=== PATIENT | female | born 1975 | race Caucasian/White ===

== ENCOUNTER 2016-05-13 01:45 | Emergency (ER) | payer OTHER ==
[~2016-05-13] VITALS: Ht 160 cm; Wt 75.8 kg
--- OUTSIDE RECORDS SUMMARY | 2016-05-13 01:50 | XMS REPORT | CCD ---
Author Author RACH SPAULDING Organization Unknown Address [address], [place] [id number] Phone 0 Care Team Providers Care White Lead Filterer Name Role Phone RANGEL DEVRIES Attending Physician [phone] Vital Signs Unknown or Not Available. Allergies Unknown or Not Available. Procedures Unknown or Not Available. History of Immunizations Unknown or Not Available. Problems Unknown or Not Available. Results GLUCOSE - Collect Date/Time: 05/14/2015 08:10 Test Name Code Test Result Test Units Test Ref Range GLUCOSE 104 mg/dL L=70 H=110 LIPID PANEL - Collect Date/Time: 05/14/2015 08:10 Test Name Code Test Result Test Units Test Ref Range CHOLESTEROL 185 mg/ dL L=0 H=200 TRIGLYCERIDES 31 mg/ dL L=30 H=150 HDL 49 mg/dL L=50 H=60 LDL, CALC 130 mg/dL L=0 H=100 VLDL 6 mg/dL L=0 H=40 CHOL/HDL RISK 3.8 RATIO L=0.0 H=4.4 PT FASTING: YES N/A TSH - Collect Date/Time: 05/14/2015 08:10 Test Name Code Test Result Test Units Test Ref Range TSH 2.60 uIU/mL L=0.36 H=3.74 Active Medications Unknown or Not Available. Medications Administered During Visit Unknown or Not Available. Encounters Encounter Diagnosis Diagnosis Code Start Date Encounter for screening for lipoid disorders [id number] 05/14/2015 Social History Smoking Status Code Start Date End Date Unknown if ever smoked [id number] Patient Decision Aids Unknown or Not Available. Discharge Instructions You were admitted to [facility] on 05/14/2015 08:07 with a principal diagnosis of Encounter for screening for lipoid disorders You had the following tests done: GLUCOSE LIPID PANEL TSH You were discharged from [facility] on 05/14/2015 08:07 Should you have any questions prior to discharge, please contact a member of your healthcare team. If you have left the hospital and have any questions, please contact your primary care physician. Chief Complaint and Reason For Visit Chief Complaint Date of Onset LAB Function Status Unknown or Not Available. Plan of Care Unknown or Not Available. Referral/Transition of Care Unknown or Not Available.
--- OUTSIDE RECORDS SUMMARY | 2016-05-13 01:50 | XMS REPORT | Continuity of Care Document ---
Demographics Preferred Language Unknown Marital Status Unknown Congregational Affiliation Unknown Race Unknown Ethnic Group Unknown Author Author [facility] Organization [facility] Address Unknown Phone Unavailable Allergies Medications Problems Procedures Results Encounters ACCT No. Visit Date/Time Discharge Status Pt. Type Provider Facility Loc./Unit Complaint [id number] 06/16/2015 11:00:00 [facility] Unknown
[2016-05-13 01:55] VITALS: TEMP 97.9; Ht 160 cm; Wt 75.8 kg
--- NOTE | 2016-05-13 02:10 | NUR ---
PROVIDER DR MCCOY IN ROOM AT THIS TIME.
[2016-05-13] MEDS ORDERED: ESCI10TA PO (02:33)
--- NOTE | 2016-05-13 02:40 | NUR ---
PROVIDER DR MCCOY IN ROOM AT THIS TIME.
--- NOTE | 2016-05-13 02:55 | ERPDOC ---
Departure Disposition Decision Date: May 13, 2016 Disposition Decision Time: 02:51 Disposition: 01 DISCHARGED HOME, SELF-CARE Impression Impression Impression: Primary Impression: Acute allergic conjunctivitis of both eyes Severity: Mild Condition: Improved Seen By: Physician only Referrals: JAZIEL CARL MD 3 Days Patient Instructions: Chemical Eye Mueller (ED), Ketorolac (Into the eye) Problems/Meds/Labs Reviewed?: Yes Medications reviewed and manag: Yes Additional Instructions: You have had a reaction to either your new contact lenses or the solution used to store them. Do not wear your contacts until evaluated by your eye doctor. If you do not have any eye doctor, call Dr. Carl's office on Sunday for follow up. Use the toradol drops up to four times per day to help with pain. Use an over the counter wetting drop to help with irritation. Follow up care ordered?: Yes Mental Status: Alert, Oriented HPI - EENT General General Chief Complaint: Eye Problems Stated Complaint: EYE PAIN Time Seen by Provider: 02:06 Source: patient, family Exam Limitations: no limitations HPI - EENT General Initial Comments 41yo woman presents to the ER with b/l eye pain and irritation. Pt got a brand new set of rigid, gas permeable contacts yesterday. She wore them throughout the day without incident; took them out and stored them as per the instructions. Pt awoke earlier today with eye pain and redness. Sx have not stopped since they started. Pt was not sure what to do, so she came to the ER for evaluation. Occurred At: home Onset/Timing: Rapid Duration: 1-3 hrs Pain/Severity Scale: Now & Worst: 5/10 Severity: moderate Location: eye (R), eye (L) 1 - Injected sclera 2 - Injected sclera Prearrival Treatment: no prearrival treatment Quality: throbbing, aching, burning Allergies: Coded Allergies: NKDA (Verified Allergy, Unknown, 05/13/16) Past History Past Medical History Psychological: depression Review of Systems Eyes General: burning, itching, pain, DENIES: dryness, erythema, exudate, foreign body sensation, photophobia, subconjunctival bleed, watering Physical Exam General General Nourishment: well nourished, well developed, appears stated age, no acute distress, adult General Body Habitus: well groomed Vitals and Pain First Documented Vital Signs Date Time Temp Pulse Resp B/P Pulse Ox O2 Delivery O2 Flow Rate FiO2 05/13/16 01:55 97.9 87 16 135/87 100 Room Air Weight: Kilograms: 75.800 Height (feet): 5 Height (inches): 3.00 Triage Pain Scale: RN VS reviewed by Provider: Yes Eyes Eyes Detail : Location: Bilateral Foreign Body: FOUND no abnormalities Pupils: FOUND 3 mm Cornea: NOT FOUND abrasion, NOT FOUND ulceration, NOT FOUND laceration Conjunctiva: FOUND injected, NOT FOUND purulent exudates, NOT FOUND stippling, NOT FOUND watery exudates Sclera: FOUND no abnormalities Anterior Chamber: FOUND no abnormalities Lens: FOUND no abnormalities Eyelids: FOUND no abnormalities Visual Newman: no deficit Supervisory Exam Head: atraumatic Nares: no exudate Neck: trachea midline Chest: symmetric Abdomen: non-distended Musculoskeletal: no deformity or atrophy Neurological: no abnormal movements Skin: pink, dry Psychological: alert, appropriate Differential Diagnoses Considering: Abrasion, Chalazion, Conjunctival Foreign Body, Conjunctivitis, Corneal Foreign Body, Hyphema, Intraocular Foreign Body, Subconjuctival Hemorrhage, Vitreous Detachment Procedures Eye Procedure Procedure Eye #1: Eyes: Left eye Topical Anesthetic Drops: YES: Tetracaine drops Slit Lamp Used?: No Cornea: NOT FOUND: abrasion, foreign body, stippling, ulcer Anterior Chamber: NOT FOUND: hyphema, hypopion, wheal & flare Conjunctiva: FOUND: other (Injected), NOT FOUND: laceration, ulcer Lids: NOT FOUND: blepharitis, chalazion, sty Fluorescein used?: Yes Fluorescein uptake?: No Medications: other Eye Patch: No Procedure Eye #2: Eyes: Right eye Topical Anesthetic Drops: YES: Tetracaine drops Slit Lamp Used?: No Cornea: NOT FOUND: abrasion, foreign body, stippling, ulcer Anterior Chamber: NOT FOUND: hyphema, hypopion, wheal & flare Conjunctiva: FOUND: other, NOT FOUND: laceration, ulcer Lids: NOT FOUND: blepharitis, chalazion, sty Fluorescein used?: Yes Fluorescein uptake?: No Eye Patch: No Progress Results/Orders Orders Procedure Category Date Status Time Ketorolac PHA 05/13/16 Complete Tromethamine (Acular) 09:00 Fluorescein Sodium PHA 05/13/16 Complete (Ful-Faith) 03:45 Tetracaine 0.5% Eye PHA 05/13/16 Complete Drops (Tetracaine 0. 03:45 Medications Current ED Medications Ketorolac Tromethamine (Acular) 1 drop QID BOTH EYES Last administered on 03:15; Start 05/13/16 at 09:00; Stop 05/13/16 at 09:00; Status DC Fluorescein Sodium (Ful-Faith) 1 mg O ONCE BOTH EYES Last administered on 02:40; Start 05/13/16 at 03:45; Stop 05/13/16 at 03:45; Status DC Tetracaine HCl (Tetracaine 0.5% Eye Drops) 1 drop O ONCE BOTH EYES Last administered on 05/13/16 02:10; Start 05/13/16 at 03:45; Stop 05/13/16 at 03:45; Status DC Progress Progress Pt has s/s c/w contact lens hypersensitivity. Discussed dx with pt, recommendations to refrain from use until seen by ophtho, and use of medications to help with sx. Pt voiced understanding and will contact her ophtho in the AM. ANDRES MCCOY DO May 13, 2016 02:55
--- NOTE | 2016-05-13 02:58 | NUR ---
PROVIDER MAY IN ROOM TO DISCUSS DISCHARGE INSTRUCTIONS AND TREATMENT PLAN.
[2016-05-13 03:16] VITALS: BP 123/77; PULSE 102; RESP 16; O2SAT 97
--- NOTE | 2016-05-13 03:16 | NUR ---
DEPART PT IS DISCHARGED AT THIS TIME, INSTRUCTIONS ARE REVIEWED AND UNDERSTANDING IS VOICED. PT LEAVES AMBULATORY WITH SPOUSE.
--- OUTSIDE RECORDS SUMMARY | 2016-05-13 03:16 | XMS REPORT | Continuity of Care Document ---
Demographics Preferred Language Unknown Marital Status Unknown Church Affiliation Unknown Race Unknown Ethnic Group Unknown Author Author [facility] Organization [facility] Address Unknown Phone Unavailable Allergies Medications Problems Procedures Results Encounters ACCT No. Visit Date/Time Discharge Status Pt. Type Provider Facility Loc./Unit Complaint [id number] 06/16/2015 11:00:00 [facility] Unknown
[2016-05-13] MEDS ORDERED: TETRACAINE 0.5% EYE DROPS 4ml BOTTLE BOTH EYES ONE (03:45)
[2016-05-13] MEDS ORDERED: FLUORESCEIN SODIUM 1 MG/STRIP BOTH EYES ONE (03:45)
[2016-05-13] MEDS ORDERED: KETOROLAC 0.5% BOTH EYES SCH (09:00)
[2016-05-13] MEDS ORDERED: EYE BOTH EYES SCH (09:00)
== END 2016-05-13 03:16 | disposition home or self-care (01) ==
LOC: ED 01:45
DX: H10.13 Acute atopic conjunctivitis, bilateral (principal)